=== PATIENT | male | born 1970 | race Caucasian/White ===

== ENCOUNTER 2021-08-14 17:15 | Emergency (ER) | payer OTHER ==
[2021-08-14] MEDS ORDERED: Ibuprofen 800 MG TAB ONE (17:42)
== END 2021-08-14 17:52 | disposition home or self-care (01) ==
LOC: BURERS 17:15
DX: S46.211A Strain of muscle, fascia and tendon of other parts of biceps, right arm, initial encounter (principal); F17.210 Nicotine dependence, cigarettes, uncomplicated; W01.0XXA Fall on same level from slipping, tripping and stumbling without subsequent striking against object, initial encounter
CPT/HCPCS: 99282